=== PATIENT | female | born 1980 ===

== ENCOUNTER 2022-12-27 14:57 | Outpatient (CLI) | payer OTHER, SELFPAY ==
--- NOTE | 2022-12-27 15:02 | MM_ITS ---
WS: [id number] BILATERAL 3D TOMOSYNTHESIS DIGITAL SCREENING MAMMOGRAPHY WITH CAD CLINICAL INFORMATION: Z12.31 - Encounter for screening mammogram for malignant ... HISTORY: Screening mammogram. Pain and soreness RIGHT breast. COMPARISON: None. TECHNIQUE: Bilateral CC and MLO views. FINDINGS: Scattered fibroglandular densities bilaterally. Partially obscured lobulated nodule LEFT breast with central calcification measuring 9 mm. This is mid to posterior depth lower inner LEFT breast. This is indeterminant and recommend further evaluation with spot diagnostic mammography and ultrasound. RIGHT breast is unremarkable. MM/[place] [id number] IMPRESSION: BI-RADS: 0-Incomplete: Need additional imaging evaluation FOLLOW UP: Need Additional Imaging Recommend LEFT breast diagnostic mammography and ultrasound for further evaluat ion.
== END 2022-12-27 14:58 | disposition home or self-care (01) ==
LOC: RAD 14:58
PROVIDERS: PCP Nurse Practitioner Family; Visit Provider Obstetrics & Gynecology
DX: Z12.31 Encounter for screening mammogram for malignant neoplasm of breast (principal)
CPT/HCPCS: 77063; 77067

== ENCOUNTER 2023-01-27 10:58 | Outpatient (CLI) | payer OTHER, SELFPAY ==
--- NOTE | 2023-01-27 11:26 | MM_ITS ---
WS: [id number] LEFT 3D TOMOSYNTHESIS DIGITAL MAMMOGRAPHY WITH CAD CLINICAL INFORMATION: ABNORMAL MAMMO HISTORY: Additional views COMPARISON: December 27, 2022 TECHNIQUE: 3 views of the left breast were obtained. FINDINGS: Scattered fibroglandular densities of the left breast. Partially obscured lobulated nodule LEFT breas t with central calcification measuring 9 mm is unchanged and persistent This is mid to posterior dept h lower inner LEFT breast. Ultrasound is pending. ULTRASOUND BREAST LEFT TECHNIQUE: Ultrasound left breast focused area of concern. CLINICAL INFORMATION: ABNORMAL MAMMO FINDINGS: Ultrasound LEFT breast at the 6 to 7:00 position. Ovoid hypoechoic nodule adjacent to the nipple ladonna uring 0.8 x 1.0 x 0.6 cm with associated calcifications. This is indeterminant and recommend further evaluation with ultrasound-guided biopsy. MM/[place] [id number] IMPRESSION: BI-RADS: 4-Suspicious Finding-Biopsy Should Be Considered FOLLOW UP: US Guided Biopsy Recommended Recommend ultrasound-guided biopsy of LEFT breast nodule
== END 2023-01-27 10:59 | disposition home or self-care (01) ==
PROVIDERS: PCP Nurse Practitioner Family; Visit Provider Obstetrics & Gynecology
DX: R92.8 Other abnormal and inconclusive findings on diagnostic imaging of breast (principal); N63.24 Unspecified lump in the left breast, lower inner quadrant
CPT/HCPCS: 76642; 77061; G0279

== ENCOUNTER 2023-02-02 12:11 | Outpatient (CLI) | payer OTHER, SELFPAY ==
--- NOTE | 2023-02-02 12:45 | US_ITS ---
WS: [id number] ULTRASOUND-GUIDED LEFT BREAST BIOPSY HISTORY: Left breast mass at 6:00. COMPARISON: 01/27/2023, 12/27/2022 Procedure, risks and complications are explained to the patient. Medications are reviewed. Consent is obtained. The mass in the left breast is localized with ultrasound. Mass localizes to 6:00, 2 cm from the nippl e. Skin is cleansed with ChloraPrep and anesthetized with 1% buffered lidocaine. Small dermatome is m renato. Under sterile conditions mass is biopsied with a 14-gauge Achieve needle. Multiple core biopsies are performed. Material placed in formalin and sent to pathology for review. No complications encoun tered. Breast tissue marker (Bard ultrasound enhanced ribbon): Single. Patient left the radiology suite with no complications. Patient is instructed to return to [facility] [place] [facility] with any concerns. IMPRESSION: 1. Uncomplicated core needle biopsy left breast mass at 6:00, 2 cm from the nipple. US/[place] [id number] PATHOLOGY: Fibroadenoma. No atypia or malignancy. RECOMMENDATION: Diagnostic right mammogram follow-up 6 months. Possible ultraso und.
== END 2023-02-02 12:12 | disposition home or self-care (01) ==
PROVIDERS: PCP Nurse Practitioner Family; Visit Provider Obstetrics & Gynecology
DX: N63.25 Unspecified lump in the left breast, overlapping quadrants (principal); R92.8 Other abnormal and inconclusive findings on diagnostic imaging of breast
CPT/HCPCS: 19083; 88305

== ENCOUNTER 2023-09-27 09:51 | Outpatient (CLI) | payer OTHER, SELFPAY ==
--- NOTE | 2023-09-27 09:57 | MM_ITS ---
WS: [id number] DIAGNOSTIC LEFT DIGITAL TOMOSYNTHESIS MAMMOGRAPHY WITH CAD. LEFT breast ultrasound, limited HISTORY: Postbiopsy follow-up. LEFT breast mass biopsy consistent with fibroadenoma. COMPARISON: 01/27/2023, 12/27/2022 Technique: CC, MLO and ML views. Spot compression LEFT CC. Breast composition: There are scattered areas of fibroglandular density. Reidentified is a well-cir cumscribed mass in the posterior breast measuring approximately 6 mm. There is a biopsy clip associat ed with the mass. Mass near the 6-7 o'clock axis. No additional abnormalities. There is been no incre ase in size of this mass since the prior study. LEFT breast ultrasound, limited. Ultrasound of the LEFT breast at 6-7 o'clock. Reidentified is the fibroid at 6:00, 2 cm from the nipp le now measuring 6 x 5 x 5 mm. Mass has decreased in size. IMPRESSION: MM/[place] [id number] BI-RADS: 2-Benign FOLLOW UP: 1 Year Follow-up Return to annual screening mammography.
== END 2023-09-27 09:52 | disposition home or self-care (01) ==
LOC: RAD 09:52
PROVIDERS: PCP Nurse Practitioner Family; Visit Provider Obstetrics & Gynecology
DX: R92.8 Other abnormal and inconclusive findings on diagnostic imaging of breast (principal); D24.2 Benign neoplasm of left breast
CPT/HCPCS: 76642; 77061; G0279